=== PATIENT | female | born 1935 | race African-American/Black ===

== ENCOUNTER 2022-04-21 08:10 | Emergency (ER) | payer OTHER ==
[~2022-04-21] VITALS: Ht 167.6 cm; Wt 77.3 kg
[2022-04-21] MEDS ORDERED: SODIUM CHLORIDE 0.9% 250 ML IV ONE (09:00)
[2022-04-21 09:26] LABS: BASOPHILS % (AUTO) 0.3 % (0.0-2.0); EOSINOPHILS % (AUTO) 1.9 % (1.0-6.0); HEMATOCRIT 38.5 % (36-46); HEMOGLOBIN 12.9 g/dL (12.0-16.0); LYMPHOCYTES # (AUTO) 2.3 K/uL (1.0-4.8); LYMPHOCYTES % (AUTO) 24.6 % (22.0-44.0); MEAN CORPUSCULAR HEMOGLOBIN 30.5 pg (26.0-34.0); MEAN CORPUSCULAR HGB CONC 33.5 G/dL (31.0-37.0); MEAN CORPUSCULAR VOLUME 91 fL (80-100); MONOCYTES # (AUTO) 0.9 K/uL (0.1-1.0); MONOCYTES % (AUTO) 9.1 % (2.0-9.0); NEUTROPHILS # (AUTO) 6.1 K/uL (1.8-7.7); NEUTROPHILS % (AUTO) 64.1 % (40.0-70.0); PLATELET COUNT (AUTO) 189 K/uL (150-450); RED BLOOD CELL COUNT(AUTO) 4.23 MIL/uL (4.00-5.20); RED CELL DISTRIBUTION WIDTH 14.5 % (11.5-14.5)
[2022-04-21 09:30] LABS: APPEARANCE,URINE CLEAR (CLEAR); BILIRUBIN,URINE NEGATIVE (NEGATIVE); GLUCOSE, URINE (UA) NEGATIVE (NEGATIVE); KETONES,URINE NEGATIVE (NEGATIVE); LEUKOCYTE ESTERASE ,URINE NEGATIVE (NEGATIVE); NITRATE,URINE NEGATIVE (NEGATIVE); OCCULT BLOOD,URINE NEGATIVE (NEGATIVE); PH,URINE 7.5 (5.0-8.0); PROTEIN,URINE NEGATIVE (NEGATIVE); SPECIFIC GRAVITIY, URINE 1.009 (1.003-1.030); UROBILINOGEN,URINE <=1.0 mg/dL (<=1.0)
[2022-04-21 09:34] LABS: CALCIUM, TOTAL 10.5 mg/dL (8.8-10.5); CREATININE 1.2 mg/dL (0.60-1.30); POTASSIUM 4.6 mmol/L (3.5-5.1)
[2022-04-21 09:42] LABS: ALBUMIN 3.8 g/dL (3.4-5.0); BILIRUBIN,TOTAL 0.5 mg/dL (0.1-1.0); TOTAL PROTEIN, SERUM 8.2 g/dL (6.4-8.2)
[2022-04-21 10:30] VITALS: BP 159/75
== END 2022-04-21 11:19 | disposition home or self-care (01) ==
LOC: EMS 08:10
DX: R35.0 Frequency of micturition (principal)
CPT/HCPCS: 80053; 81003; 85025; 99283

== ENCOUNTER 2023-04-01 23:37 | Emergency (ER) | payer MEDICARE, OTHER ==
[~2023-04-01] VITALS: Ht 167.6 cm; Wt 84.1 kg
[2023-04-02] MEDS ORDERED: ATOR20TA86 PO (00:28)
[2023-04-02] MEDS ORDERED: AMLO-258 PO (00:28)
[2023-04-02] MEDS ORDERED: MECL-134 PO (00:28)
[2023-04-02] MEDS ORDERED: GLIP5TAB12 PO (00:28)
[2023-04-02] MEDS ORDERED: LOSA-382 PO (00:28)
[2023-04-02] MEDS ORDERED: PARO-38 PO (00:28)
[2023-04-02] MEDS ORDERED: OMEP20 PO (00:28)
[2023-04-02] MEDS ORDERED: MULT-1203 PO (00:28)
[2023-04-02] MEDS ORDERED: ALPR-707 PO (00:28)
[2023-04-02] MEDS ORDERED: LEVO25TA9 PO (00:28)
[2023-04-02] MEDS ORDERED: HYDR-4870 PO (00:28)
[2023-04-02] MEDS ORDERED: OMEG-135 PO (00:28)
[2023-04-02] MEDS ORDERED: SODIUM CHLORIDE 0.9% 1,000 ML IV ONE (00:30)
[2023-04-02 00:50] LABS: BASOPHILS % (AUTO) 0.7 % (0.0-2.0); EOSINOPHILS % (AUTO) 1.4 % (1.0-6.0); HEMATOCRIT 33.7 % (36-46); LYMPHOCYTES # (AUTO) 2.5 K/uL (1.0-4.8); LYMPHOCYTES % (AUTO) 19.3 % (22.0-44.0); MEAN CORPUSCULAR HEMOGLOBIN 29.6 pg (26.0-34.0); MEAN CORPUSCULAR HGB CONC 32.8 G/dL (31.0-37.0); MEAN CORPUSCULAR VOLUME 91 fL (80-100); MONOCYTES # (AUTO) 1.1 K/uL (0.1-1.0); MONOCYTES % (AUTO) 8.4 % (2.0-9.0); NEUTROPHILS # (AUTO) 8.9 K/uL (1.8-7.7); NEUTROPHILS % (AUTO) 70.2 % (40.0-70.0); PLATELET COUNT (AUTO) 321 K/uL (150-450); RED BLOOD CELL COUNT(AUTO) 3.72 MIL/uL (4.00-5.20)
[2023-04-02 01:01] LABS: CALCIUM, TOTAL 10.6 mg/dL (8.8-10.5); CREATININE 1.12 mg/dL (0.60-1.30)
[2023-04-02 01:07] LABS: ALBUMIN 3.4 g/dL (3.4-5.0); BILIRUBIN,TOTAL 0.5 mg/dL (0.1-1.0); TOTAL PROTEIN, SERUM 7.7 g/dL (6.4-8.2)
[2023-04-02] MEDS ORDERED: METOCLOPRAMIDE HCL 5 MG/ML 2 ML VIAL IVP ONE (03:00)
[2023-04-02] MEDS ORDERED: SODIUM PHOS/SODIUM BIPHOS 133 ML ENEMA PR ONE ×2 (04:45)
[2023-04-02 06:26] VITALS: BP 140/74
== END 2023-04-02 06:28 | disposition home or self-care (01) ==
LOC: EMS 23:40
DX: K59.00 Constipation, unspecified (principal); R11.2 Nausea with vomiting, unspecified; F41.9 Anxiety disorder, unspecified; F32.A Depression, unspecified; E11.9 Type 2 diabetes mellitus without complications; E78.00 Pure hypercholesterolemia, unspecified; I10 Essential (primary) hypertension
CPT/HCPCS: 99285; 80053; 83690; 84484; 85025; 74176; 96374; 96361; 93005; J2765; J7030

== ENCOUNTER 2023-04-06 23:17 | Inpatient (IN) | payer MEDICARE ==
[~2023-04-06] VITALS: Ht 167.6 cm; Wt 77.2 kg
[~2023-04-06 23:17] MED LIST: ALPR-707 PO; AMLO-258 PO; ATOR20TA PO; GLIP5TAB12 PO; HYDR25TA2 PO; LEVO25TA9 PO; LOSA-382 PO; MECL-134 PO; MULT-1203 PO; OMEG-135 PO; OMEP20 PO; PARO-38 PO
[2023-04-07] MEDS ORDERED: ONDANSETRON HCL 4 MG TABLET PO ONE (02:15)
[2023-04-07] MEDS ORDERED: SODIUM PHOSPHATE,MONO-DIBASIC 133 ML ENEMA PR ONE (02:15)
[2023-04-07 02:44] LABS: BASOPHILS % (AUTO) 0.2 % (0.0-2.0); EOSINOPHILS % (AUTO) 1.6 % (1.0-6.0); HEMATOCRIT 27.5 % (36-46); HEMOGLOBIN 9.1 g/dL (12.0-16.0); LYMPHOCYTES # (AUTO) 2.1 K/uL (1.0-4.8); LYMPHOCYTES % (AUTO) 17.7 % (22.0-44.0); MEAN CORPUSCULAR HEMOGLOBIN 29.8 pg (26.0-34.0); MEAN CORPUSCULAR HGB CONC 33.2 G/dL (31.0-37.0); MEAN CORPUSCULAR VOLUME 90 fL (80-100); MONOCYTES # (AUTO) 1.1 K/uL (0.1-1.0); MONOCYTES % (AUTO) 9.3 % (2.0-9.0); NEUTROPHILS # (AUTO) 8.4 K/uL (1.8-7.7); NEUTROPHILS % (AUTO) 71.2 % (40.0-70.0); PLATELET COUNT (AUTO) 305 K/uL (150-450); RED BLOOD CELL COUNT(AUTO) 3.06 MIL/uL (4.00-5.20); RED CELL DISTRIBUTION WIDTH 14.1 % (11.5-14.5)
[2023-04-07 02:54] LABS: CALCIUM, TOTAL 10.1 mg/dL (8.8-10.5); CREATININE 1.07 mg/dL (0.60-1.30); POTASSIUM 3.8 mmol/L (3.5-5.1)
[2023-04-07 03:00] LABS: ALBUMIN 3.2 g/dL (3.4-5.0); BILIRUBIN,TOTAL 0.7 mg/dL (0.1-1.0); TOTAL PROTEIN, SERUM 6.8 g/dL (6.4-8.2)
[2023-04-07] MEDS ORDERED: MAGNESIUM HYDROXIDE SUSPENSION 30 ML UDCUP PO PRN ×2 (12:15→12:30)
[2023-04-07] MEDS ORDERED: ONDANSETRON HCL 4 MG/2 ML VIAL IVP PRN ×2 (12:15→12:30)
[2023-04-07] MEDS ORDERED: BISACODYL 10 MG RECTAL RECTAL SUPPOSITORY PR PRN ×2 (12:15→12:30)
[2023-04-07] MEDS ORDERED: HYDROCODONE/ACETAMINOPHEN 5-325 MG TABLET PO PRN ×2 (12:15→12:30)
[2023-04-07] MEDS ORDERED: MORPHINE SULFATE 2 MG/ML SYRINGE IVP PRN ×2 (12:15→12:30)
[2023-04-07] MEDS ORDERED: ZOLPIDEM TARTRATE 5 MG TABLET PO PRN ×2 (12:15→12:30)
[2023-04-07] MEDS ORDERED: ACETAMINOPHEN 325 MG TABLET PO PRN ×2 (12:15→12:30)
[2023-04-07 12:30] VITALS: BP 171/76
[2023-04-07] MEDS: AmLODIPine BESYLATE 10 MG TABLET PO SCH (13:20)
[2023-04-07 14:15] VITALS: BP 148/80
[2023-04-07] MEDS ORDERED: HEPARIN SODIUM,PORCINE 5,000 UNITS/ML VIAL SQ SCH (16:00)
[2023-04-07] MEDS: HEPARIN SODIUM,PORCINE 5,000 UNITS/ML VIAL SQ SCH ×2 (16:58→23:36)
[2023-04-07] MEDS ORDERED: HydrALAZINE HCL 20 MG/ML VIAL IVP PRN (17:45)
[2023-04-07] MEDS ORDERED: DOCUSATE SODIUM 100 MG CAPSULE PO SCH (21:00)
[2023-04-07] MEDS: ATORVASTATIN CALCIUM 20 MG TABLET PO SCH (22:09)
[2023-04-07] MEDS: BISACODYL 5 MG EC TABLET PO SCH (22:09)
[2023-04-07] MEDS: DOCUSATE SODIUM 100 MG CAPSULE PO SCH (22:09)
[2023-04-08 02:20] VITALS: BP 133/60
[2023-04-08] MEDS: LEVOTHYROXINE SODIUM 25 MCG TABLET PO SCH (05:42)
[2023-04-08 08:18] VITALS: BP 122/58
[2023-04-08] MEDS ORDERED: PANTOPRAZOLE SODIUM 40 MG DR TABLET PO SCH ×2 (09:00)
[2023-04-08] MEDS ORDERED: AmLODIPine BESYLATE 10 MG TABLET PO SCH (09:00)
[2023-04-08] MEDS: HEPARIN SODIUM,PORCINE 5,000 UNITS/ML VIAL SQ SCH ×3 (09:41→23:43)
[2023-04-08] MEDS: DOCUSATE SODIUM 100 MG CAPSULE PO SCH ×2 (09:41→21:27)
[2023-04-08] MEDS: OMEPRAZOLE 20 MG CAPSULE PO SCH (09:42)
[2023-04-08] MEDS: AmLODIPine BESYLATE 10 MG TABLET PO SCH (09:42)
[2023-04-08] MEDS: BISACODYL 5 MG EC TABLET PO SCH ×2 (09:42→21:28)
[2023-04-08] MEDS: LOSARTAN POTASSIUM 50 MG TABLET PO SCH (09:42)
[2023-04-08 11:28] VITALS: BP 140/68
[2023-04-08 12:06] LABS: GLUCOMETER DEV NAME(LOC) 5N.1C; GLUCOSE,POINT OF CARE 155 MG/DL (70-110)
[2023-04-08 14:52] LABS: BASOPHILS % (AUTO) 0.2 % (0.0-2.0); EOSINOPHILS % (AUTO) 0.5 % (1.0-6.0); HEMATOCRIT 29.7 % (36-46); HEMOGLOBIN 9.6 g/dL (12.0-16.0); LYMPHOCYTES # (AUTO) 2.3 K/uL (1.0-4.8); LYMPHOCYTES % (AUTO) 17.1 % (22.0-44.0); MEAN CORPUSCULAR HEMOGLOBIN 29.3 pg (26.0-34.0); MEAN CORPUSCULAR HGB CONC 32.2 G/dL (31.0-37.0); MEAN CORPUSCULAR VOLUME 91 fL (80-100); MONOCYTES # (AUTO) 1.1 K/uL (0.1-1.0); MONOCYTES % (AUTO) 7.8 % (2.0-9.0); NEUTROPHILS # (AUTO) 10.1 K/uL (1.8-7.7); NEUTROPHILS % (AUTO) 74.4 % (40.0-70.0); PLATELET COUNT (AUTO) 350 K/uL (150-450); RED BLOOD CELL COUNT(AUTO) 3.27 MIL/uL (4.00-5.20); RED CELL DISTRIBUTION WIDTH 14.6 % (11.5-14.5)
[2023-04-08 15:09] LABS: CALCIUM, TOTAL 9.9 mg/dL (8.8-10.5); CREATININE 1.74 mg/dL (0.60-1.30); POTASSIUM 3.9 mmol/L (3.5-5.1)
[2023-04-08] MEDS ORDERED: DEXTROSE 50%-WATER 25 GM/50 ML SYRINGE IVP PRN (15:45)
[2023-04-08 15:52] VITALS: BP 136/62
[2023-04-08] MEDS: FERROUS SULFATE 325 MG EC TABLET PO SCH (17:06)
[2023-04-08] MEDS: INSULIN LISPRO 100 UNITS/ML SQ PRN ×2 (17:37→21:28)
[2023-04-08 20:08] VITALS: BP 123/56
[2023-04-08] MEDS: ATORVASTATIN CALCIUM 20 MG TABLET PO SCH (21:27)
[2023-04-09] VITALS (7 sets, daily range): BP systolic 130–143; BP diastolic 58–67
[2023-04-09 00:51] LABS: GLUCOMETER DEV NAME(LOC) 5N.2C; GLUCOSE,POINT OF CARE 169 MG/DL (70-110)
[2023-04-09 00:51] LABS: GLUCOMETER DEV NAME(LOC) 5N.2C; GLUCOSE,POINT OF CARE 176 MG/DL (70-110)
[2023-04-09] MEDS: LEVOTHYROXINE SODIUM 25 MCG TABLET PO SCH (05:34)
[2023-04-09] MEDS: DOCUSATE SODIUM 100 MG CAPSULE PO SCH ×2 (08:20→22:16)
[2023-04-09] MEDS: FERROUS SULFATE 325 MG EC TABLET PO SCH ×2 (08:20→18:04)
[2023-04-09] MEDS: HEPARIN SODIUM,PORCINE 5,000 UNITS/ML VIAL SQ SCH ×2 (08:20→16:00)
[2023-04-09] MEDS: AmLODIPine BESYLATE 10 MG TABLET PO SCH (08:20)
[2023-04-09] MEDS: OMEPRAZOLE 20 MG CAPSULE PO SCH (08:21)
[2023-04-09] MEDS: LOSARTAN POTASSIUM 50 MG TABLET PO SCH (08:21)
[2023-04-09] MEDS: BISACODYL 5 MG EC TABLET PO SCH ×2 (08:23→22:16)
[2023-04-09 11:15] LABS: BASOPHILS % (AUTO) 0.6 % (0.0-2.0); EOSINOPHILS % (AUTO) 1.2 % (1.0-6.0); HEMATOCRIT 28.6 % (36-46); HEMOGLOBIN 9.3 g/dL (12.0-16.0); MEAN CORPUSCULAR HEMOGLOBIN 29.6 pg (26.0-34.0); MEAN CORPUSCULAR HGB CONC 32.6 G/dL (31.0-37.0); MEAN CORPUSCULAR VOLUME 91 fL (80-100); MONOCYTES # (AUTO) 1.5 K/uL (0.1-1.0); MONOCYTES % (AUTO) 10.2 % (2.0-9.0); NEUTROPHILS # (AUTO) 10.8 K/uL (1.8-7.7); PLATELET COUNT (AUTO) 347 K/uL (150-450); RED BLOOD CELL COUNT(AUTO) 3.14 MIL/uL (4.00-5.20); RED CELL DISTRIBUTION WIDTH 14.8 % (11.5-14.5)
[2023-04-09 11:40] LABS: CALCIUM, TOTAL 10.1 mg/dL (8.8-10.5); CREATININE 2.11 mg/dL (0.60-1.30); POTASSIUM 4.7 mmol/L (3.5-5.1)
[2023-04-09 12:06] LABS: GLUCOMETER DEV NAME(LOC) 5S.2C; GLUCOSE,POINT OF CARE 156 MG/DL (70-110)
[2023-04-09] MEDS: INSULIN LISPRO 100 UNITS/ML SQ PRN (12:37)
[2023-04-09] MEDS ORDERED: DOCU-385 PO (14:32)
[2023-04-09] MEDS ORDERED: BISA-151 PO (14:32)
[2023-04-09] MEDS ORDERED: SODIUM CHLORIDE 0.9% 500 ML IV ONE (14:45)
[2023-04-09 18:01] LABS: GLUCOMETER DEV NAME(LOC) 5S.2C; GLUCOSE,POINT OF CARE 137 MG/DL (70-110)
[2023-04-09] MEDS: ALPRAZolam 0.5 MG TABLET PO SCH (22:17)
[2023-04-09] MEDS: ATORVASTATIN CALCIUM 20 MG TABLET PO SCH (22:17)
[2023-04-10] MEDS: HEPARIN SODIUM,PORCINE 5,000 UNITS/ML VIAL SQ SCH ×2 (00:35→10:55)
[2023-04-10 05:13] VITALS: BP 112/57
[2023-04-10] MEDS: LEVOTHYROXINE SODIUM 25 MCG TABLET PO SCH (06:37)
[2023-04-10 06:39] LABS: BASOPHILS % (AUTO) 0.6 % (0.0-2.0); EOSINOPHILS % (AUTO) 1.1 % (1.0-6.0); HEMATOCRIT 27.1 % (36-46); HEMOGLOBIN 8.8 g/dL (12.0-16.0); LYMPHOCYTES # (AUTO) 2.4 K/uL (1.0-4.8); LYMPHOCYTES % (AUTO) 20.3 % (22.0-44.0); MEAN CORPUSCULAR HEMOGLOBIN 29.7 pg (26.0-34.0); MEAN CORPUSCULAR HGB CONC 32.5 G/dL (31.0-37.0); MEAN CORPUSCULAR VOLUME 92 fL (80-100); MONOCYTES # (AUTO) 1.5 K/uL (0.1-1.0); MONOCYTES % (AUTO) 12.3 % (2.0-9.0); NEUTROPHILS # (AUTO) 7.8 K/uL (1.8-7.7); NEUTROPHILS % (AUTO) 65.7 % (40.0-70.0); PLATELET COUNT (AUTO) 336 K/uL (150-450); RED BLOOD CELL COUNT(AUTO) 2.96 MIL/uL (4.00-5.20); RED CELL DISTRIBUTION WIDTH 14.5 % (11.5-14.5)
[2023-04-10 06:47] LABS: CALCIUM, TOTAL 9.8 mg/dL (8.8-10.5); CREATININE 1.65 mg/dL (0.60-1.30); POTASSIUM 4.3 mmol/L (3.5-5.1)
[2023-04-10 07:40] VITALS: BP 136/74
[2023-04-10 08:16] LABS: GLUCOMETER DEV NAME(LOC) 5N.2C; GLUCOSE,POINT OF CARE 151 MG/DL (70-110)
[2023-04-10 08:16] LABS: GLUCOMETER DEV NAME(LOC) 5N.2C; GLUCOSE,POINT OF CARE 155 MG/DL (70-110)
[2023-04-10] MEDS ORDERED: LOSARTAN POTASSIUM 25 MG TABLET PO SCH (09:00)
[2023-04-10] MEDS: FERROUS SULFATE 325 MG EC TABLET PO SCH (10:30)
[2023-04-10] MEDS: AmLODIPine BESYLATE 10 MG TABLET PO SCH (10:53)
[2023-04-10] MEDS: DOCUSATE SODIUM 100 MG CAPSULE PO SCH (10:53)
[2023-04-10] MEDS: OMEPRAZOLE 20 MG CAPSULE PO SCH (10:54)
[2023-04-10] MEDS: ALPRAZolam 0.5 MG TABLET PO SCH (10:54)
[2023-04-10] MEDS: BISACODYL 5 MG EC TABLET PO SCH (10:54)
[2023-04-10 11:22] VITALS: BP 133/62
[2023-04-11 00:42] LABS: GLUCOMETER DEV NAME(LOC) 5N.2C; GLUCOSE,POINT OF CARE 149 MG/DL (70-110)
== END 2023-04-10 13:00 | disposition home or self-care (01) | DRG 313 ==
LOC: EMS 23:17 → 5S 04-07 10:33
PROVIDERS: ADMIT Internal Medicine; ATTEND Internal Medicine
DX: R07.89 Other chest pain (principal); N17.9 Acute kidney failure, unspecified; E44.0 Moderate protein-calorie malnutrition; R65.10 Systemic inflammatory response syndrome (SIRS) of non-infectious origin without acute organ dysfunction; I10 Essential (primary) hypertension; Z68.27 Body mass index [BMI] 27.0-27.9, adult; K59.00 Constipation, unspecified; E03.9 Hypothyroidism, unspecified; D64.9 Anemia, unspecified; E78.5 Hyperlipidemia, unspecified; F32.A Depression, unspecified; F41.9 Anxiety disorder, unspecified; K21.9 Gastro-esophageal reflux disease without esophagitis; R77.8 Other specified abnormalities of plasma proteins; D72.829 Elevated white blood cell count, unspecified; E11.9 Type 2 diabetes mellitus without complications; R62.7 Adult failure to thrive; Z79.899 Other long term (current) drug therapy
CPT/HCPCS: 71045; 74022; 76700; 80048; 80053; 82962; 83540; 83550; 83690; 84484; 85025; 87040; 93005; 93306; 99285; G0378; J0360; J1644; J2405; J7040; Q0162; 36415-L1; 36415-TC